=== PATIENT | male | born 1990 | race Caucasian/White ===

== ENCOUNTER 2016-12-01 18:35 | Emergency (ER) | payer BC ==
[~2016-12-01] VITALS: Ht 180.3 cm; Wt 87.3 kg
[2016-12-01 18:49] VITALS: TEMP 36.7; Ht 180.3 cm; Wt 87.3 kg
[2016-12-01] MEDS ORDERED: EFF/375 PO (19:10)
--- NOTE | 2016-12-01 19:42 | DIAGNOSTIC IMAGING REPORT ---
RIGHT ANKLE MIN 3 VIEWS ROUTINE CLINICAL HISTORY: R ankle pain Right trauma. Pain. COMPARISON: None. DISCUSSION: The bones and joint spaces appear intact. There is no evidence of fracture, dislocation or bony disease. There is no evidence for soft tissue swelling. IMPRESSION: Negative study. Electronically signed by: Jean Castelan M.D. 12/01/2016 7:41 PM Dictated Date/Time: 12/01/2016 7:41 PM
--- NOTE | 2016-12-01 19:43 | DIAGNOSTIC IMAGING REPORT ---
RIGHT FOOT MIN 3 VIEWS ROUTINE CLINICAL HISTORY: R foot pain Right trauma. Pain. COMPARISON: None. DISCUSSION: The bones and joint spaces appear intact. There is no evidence of fracture, dislocation or bony disease. There is no evidence for soft tissue swelling. IMPRESSION: Negative study. Electronically signed by: Jean Castelan M.D. 12/01/2016 7:42 PM Dictated Date/Time: 12/01/2016 7:41 PM
--- NOTE | 2016-12-01 19:44 | DIAGNOSTIC IMAGING REPORT ---
RIGHT TIBIA/FIBULA 2 VIEWS ROUTINE CLINICAL HISTORY: R lower leg pain Right COMPARISON: None. DISCUSSION: The bones and joint spaces appear intact. There is no evidence of fracture, dislocation or bony disease. There is no evidence for soft tissue swelling. IMPRESSION: Negative study. Electronically signed by: Jean Castelan M.D. 12/01/2016 7:43 PM Dictated Date/Time: 12/01/2016 7:42 PM
[2016-12-01 20:01] VITALS: BP 123/72; PULSE 88; O2SAT 99
--- NOTE | 2016-12-02 21:40 | EMERGENCY ROOM VISIT NOTE ---
ED Visit Note First contact with patient: 18:52 Chief Complaint: Right ankle pain. History of Present Illness: Mr. Christiansen is a 26-year-old white male who is brought into the ED via wheelchair accompanied by female friend complaining of right ankle pain over the lateral aspect. Patient reports 5 days ago he twisted his ankle when he stepped off an area from concrete and into grass. He reports he twisted the ankle and from his description this appears to be an inversion injury. He reports since that time he has been having increasing pain over the anterior and lateral aspect of the ankle. He describes his pain as a kind of throbbing but also sharp. He rates his discomfort 3/10. His pain worsens with all movement of the ankle, palpation of the lateral ligamentous structures and the anterior talus and ambulation. He has not identified any alleviating factors related to the pain. He reports he has taken a few doses of ibuprofen without relief of his discomfort. Associated with his pain he reports he has mild paresthesias throughout the top of the foot and into the toes and intermittently he has shooting pain from the lateral malleolus. Her through the fibula to just inferior to the knee. He denies hip pain, thigh pain, knee pain, lower leg pain, foot pain. He does report he has previous significant sprains but no surgeries to the ankle. Review of Systems: As noted above in history of present illness. Past Medical History: Patient denies. Current Medications: Effexor. Allergies to Medications: Penicillin. Social History: Patient is currently employed; he feels safe in his home environment; he admits to tobacco and alcohol use. Physical Examination: Vital Signs: Date Time Temp Pulse Resp B/P (MAP) Pulse Ox O2 Delivery O2 Flow Rate FiO2 12/01/16 20:01 88 18 123/72 99 12/01/16 18:49 36.7 90 16 129/73 97 Room Air GENERAL: 26-year-old male in mild distress due to pain, nontoxic-appearing, afebrile and hemodynamically stable. NEUROLOGICAL: Awake, alert and oriented to person, place and time. Answering questions appropriately and following commands. Normal gait. Good hand eye coordination. No focal motor sensory deficits. SKIN: Warm, dry and pink. RIGHT LOWER EXTREMITY: No gross bony deformity. No tenderness in the hip or knee. Moderate tenderness over the proximal fibula with no bony deformity or crepitus. There is also tenderness over the anterior, inferior posterior aspect of the lateral malleolus over the ligamentous structures and over the anterior calcaneus. I did not appreciate any bony deformity or crepitus. Over the lateral aspect of the ankle patient has moderate swelling and ecchymosis extending down into the inferior aspect of the ankle and into the lateral foot. I did not appreciate any ligamentous laxity but he did have moderate pain with testing. Decreased range of motion in dorsiflexion but not plantar flexion. He was able to flex and extend all toes without difficulty. Examination of the foot revealed tenderness over the distal aspect of the fifth metacarpal. Once again there was swelling and ecchymosis in this area. I did not appreciate any bony deformity or crepitus. Throughout the foot the skin was warm and pink and capillary refill is brisk. He was able to distinguish light sensations through all dermatomes of the foot. ED Course: Patient is assessed as noted above. Patient's medication list was reviewed. Right Lower Leg: Was read by myself and the radiologist showing no acute fractures or dislocations. No evidence of soft tissue swelling. Right Ankle X-Rays: Were read by myself and the radiologist and shows no acute fractures or dislocations. No joint effusion. Right Foot X-Rays: Were read by myself and the radiologist showing no acute fractures or dislocations. Patient was given ice for pain and comfort; he was offered pain medications and refused. Patient was placed in a gel splint and nonweightbearing crutches. Patient was educated about today's findings and instructed on his treatment plan ; he verbalizes understanding and agreement with this plan. Clinical Impression: Moderate right ankle sprain. Disposition: Patient discharged home in stable condition accompanied by his girlfriend; prior to departure he was reassessed and subjectively reported he was feeling the same and rated his discomfort 3/10. Plan: Alternate 600 mg of ibuprofen and 650 mg of acetaminophen every 3 hours as needed for pain. Use ice on areas of pain and swelling 5-6 times a day for 20-30 minutes. Keep your foot/ankle elevated while at rest. Use gel splint and nonweightbearing crutches for 3-6 days or until pain free. Follow-up with graphic specialist if no better in 7-10 days. Return to the ED for worsening/uncontrolled pain, uncontrolled swelling, foot weakness/numbness/tingling or any new/concerning symptoms.
== END 2016-12-01 20:01 | disposition home or self-care (01) ==
LOC: C.EDB 18:35 → C.EDD 20:01
DX: S93.401A Sprain of unspecified ligament of right ankle, initial encounter (principal); X50.1XXA Overexertion from prolonged static or awkward postures, initial encounter; Y92.89 Other specified places as the place of occurrence of the external cause; Z79.899 Other long term (current) drug therapy; Z72.0 Tobacco use

== ENCOUNTER 2017-11-10 11:41 | Emergency (ER) | payer BC, OTHER ==
[~2017-11-10] VITALS: Ht 180.3 cm; Wt 84.9 kg
[~2017-11-10 11:41] MED LIST: EFF/375 PO
[2017-11-10 11:47] VITALS: TEMP 36.8; Ht 180.3 cm; Wt 84.9 kg
[2017-11-10] MEDS ORDERED: MAGNESIUM SULFATE 1GM / D5W 100 ML IV STA (12:16)
[2017-11-10] MEDS ORDERED: SODIUM CHLORIDE 0.9% 500ML 500 ML IV STA (12:16)
[2017-11-10] MEDS ORDERED: ACETAMINOPHEN 500 MG TAB PO STA (12:16)
[2017-11-10] MEDS ORDERED: KETOROLAC TROMETHAMINE 30 MG/ML VIAL IV STA (12:16)
[2017-11-10] MEDS ORDERED: METOCLOPRAMIDE HCL INJ 5 MG/ML 2 ML VIAL IV. STA (12:16)
--- NOTE | 2017-11-10 12:21 | EMERGENCY ROOM VISIT NOTE ---
History Report prepared by Ira: Dotty Win Under the Supervision of: Dr. Willard Curran M.D. 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 Positive headache, lightheadedness. Negative sore throat, numbness, seeing flashing lights, weakness in extremities, recent infections, recent falls , or blood thinners. 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 This morning he woke up and had vertical double vision and his headache had moved to above his right eye. He describes his sensation as "holding his finger above his eye" and states his headache is constant. He currently takes Sertraline. 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 A total of ten systems were reviewed and were otherwise negative. Past Medical & Surgical Surgical Problems: (1) S/P tonsillectomy Family History Cancer Diabetes mellitus Heart disease Hypertension Social History Smoking Status: Never Smoker Alcohol Use: occasionally Housing Status: lives with significant other Occupation Status: employed Current/Historical Medications Scheduled Sertraline (Zoloft), 50 MG PO DAILY Allergies Coded Allergies: Penicillins (Verified Allergy, Intermediate, Hives, 11/10/17) Physical Exam Vital Signs Date Time Temp Pulse Resp B/P (MAP) Pulse Ox O2 Delivery O2 Flow Rate FiO2 11/10/17 14:28 79 18 116/65 99 11/10/17 13:40 78 18 113/62 98 Room Air 11/10/17 12:18 80 11/10/17 11:47 36.8 78 20 133/83 97 Room Air Physical Exam GENERAL: Awake, alert, well-appearing, NAD HENT: Normocephalic, atraumatic. EYES: Normal conjunctiva. Sclera non-icteric. PERRL. No anisocoria. EOMI painless. No proptosis. Visual acuity is 20/40 bilaterally w/ corrective lenses. Complains of vertical diplopia. No visual field deficits. No vision loss. NECK: Supple. No nuchal rigidity. FROM. RESPIRATORY: CTAB, no rhonchi, wheezing, crackles CARDIAC: RRR, no MRG ABDOMEN: Soft, NTND, BS+ MSK: No chest wall TTP, no LE edema NEURO: CN 2-12 intact, 5/5 upper and lower extremity strength, no dysmetria, no drift, good finger to nose, no sensory deficits. Finger count grossly normal. SKIN: No rash or jaundice noted. Medical Decision & Procedures ER Provider Diagnostic Interpretation: Radiology results as stated below per my review and radiologist interpretation: HEAD WITHOUT CONTRAST (CT) CLINICAL HISTORY: 27 years-old Male with occipital PEREZ, vertical diplopia. Acute headache TECHNIQUE: Multiple axial CT images of the head were obtained without contrast. A dose lowering technique was utilized adhering to the principles of ALARA. CT DOSE: 537.48 mGy.cm COMPARISON: CT head 04/05/2016, brain MRI 04/05/2016. FINDINGS: No acute intracranial hemorrhage, midline shift, intracranial mass, hydrocephalus, territorial ischemia or abnormal extra-axial collection. The calvarium is intact. The paranasal sinuses, mastoid air cells, and middle ear cavities are clear. IMPRESSION: No acute intracranial abnormality. The above report was generated using voice recognition software. It may contain grammatical, syntax or spelling errors. Electronically signed by: Jerzy Garcias M.D. 11/10/2017 1:11 PM Medications Administered Medications (Trade) Dose Ordered Sig/Juliana Route Start Time Stop Time Status Last Admin Dose Admin Metoclopramide HCl (Reglan Inj) 10 mg NOW STAT IV. 11/10/17 12:16 11/10/17 12:18 DC 11/10/17 12:30 10 MG Sodium Chloride 500 ml @ 999 mls/hr Q31M STAT IV 11/10/17 12:16 11/10/17 12:46 DC 11/10/17 12:30 999 MLS/HR Magnesium Sulfate 100 ml @ 100 mls/hr NOW STAT IV 11/10/17 12:16 11/10/17 13:15 DC 11/10/17 12:30 100 MLS/HR Ketorolac Tromethamine (Toradol Inj) 30 mg NOW STAT IV 11/10/17 12:16 11/10/17 12:18 DC 11/10/17 12:30 30 MG Acetaminophen (Tylenol Tab) 1,000 mg NOW STAT PO 11/10/17 12:16 11/10/17 12:18 DC 11/10/17 12:31 1,000 MG ECG Per My Interpretation Indication: other (dizziness) Rate (beats per minute): 76 Rhythm: normal sinus Findings: other (normal intervals, normal axis, no STS changes or TWI) ED Course 1205: The patient was evaluated in room C7. A complete history and physical exam was performed. 1400: I reevaluated the patient. His double vision has improved and he will follow up with his PCP. Discussed results and discharge instructions: He verbalized understanding and agreement. The patient is ready for discharge. 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 Positive headache, lightheadedness. Negative sore throat, numbness, weakness in extremities, seeing flashing lights recent infections, recent falls , or blood thinners. Nursing notes reviewed. Ancillary studies and prior records reviewed. Differential diagnosis: Etiologies such as migraine headache, meningitis, sinusitis, CO exposure, ICH, SAH, infection, tumor, headache, sinus thrombosis, arterial dissection, as well as others were entertained. Patient was seen and evaluated the bedside. Patient had been complaining of some diplopia and dizziness. He also did complain of an occipital headache. Patient denies any blood thinning medications or recent falls. Patient denies any flashing lights or floaters. The patient does not have any visual field deficits no anisocoria. The patient does wear contacts he currently is wearing an outdated prescription lenses and glasses. Patient did have a recent eye exam completed several weeks ago but did not have a dilated funduscopic exam. The patient denies any focal neuro deficits outside of his vertical diplopia. Patient does have 20 out of 40 bilaterally. The patient states that he did have an MRI which showed some sort of spot was not deemed to be anything other than migraines. Patient is a family history of MS in his aunt but not in his parents or grandparents. Patient did have a CT scan given the patient's symptoms as well as vertical diplopia. Patient was also treated for his headache. Upon reassessment patient was feeling improved and the patient no longer had any vertical diplopia. Again there is no evidence of any lazy eye or other abnormality. Given that he has no visual field deficits and no other vision difficulty this may be related to a complicated migraine. CT scan was negative acute does not show any evidence of masses or focal ischemia. The patient again is feeling improved. I did discuss risks of stroke as well as seizure and other possible causes of his double vision however these are probably less likely. Patient was told to follow-up with his PCP within the next several weeks in order to have a formal exam by an community recreation coordinator including a funduscopic exam. He may also benefit from seeing his PCP for further evaluation of migraine headache and possibly a neurology visit. Patient was told that he can drive that he should use his best judgment if he cannot see or has recurrent issues with his vision he should return here follow-up with his PCP. Patient was given strict follow-up, discharge, and return precautions. All questions were answered. Patient was deemed suitable for outpatient follow- up at this time. Patient agreed with the plan of care and was safely discharged home. Medication Reconcilliation Current Medication List: was personally reviewed by me Blood Pressure Screening Patient's blood pressure: Normal blood pressure Blood pressure disposition: Did not require urgent referral Impression Primary Impression: Complicated migraine Additional Impression: Double vision Scribe Attestation The scribe's documentation has been prepared under my direction and personally reviewed by me in its entirety. I confirm that the note above accurately reflects all work, treatment, procedures, and medical decision making performed by me. Departure Information Dispostion Home / Self-Care Referrals No Doctor, Assigned (PCP) Forms HOME CARE DOCUMENTATION FORM, IMPORTANT VISIT INFORMATION Patient Instructions ED Double Vision, ED Headache Migraine, My [facility] Additional Instructions Please return to the emergency department if you have worsening or recurrent symptoms not amenable to at-home treatment. Please call for a follow-up appointment with her primary care physician. Please take your medications as prescribed. If you have other concerns and/or complaints please feel free to also call your primary care physician's office or return the ED for further evaluation, management, and treatment. You may take 800 mg Ibuprofen every 6 hours as needed for pain/fever with food unless told by your physician not to take NSAIDs. You may take tylenol 1000 mg every 6 hours as needed for pain/fever unless told by your physician to not take it or have liver problems. You may take motrin and tylenol separately or at the same time. Take your medications as prescribed. You have been examined and treated today on an emergency basis only. This is not a substitute for, or an effort to provide, complete comprehensive medical care. It is impossible to recognize and treat all injuries or illnesses in a single emergency department visit. It is therefore important that you follow up closely with [facility], your PCP, and/or your specialist(s). Call as soon as possible for an appointment. Thank you for your time and consideration. I look forward to speaking with you again soon. Please don't hesitate to call us if you have any questions. Problem Qualifiers
[2017-11-10] MEDS ORDERED: SERT50TA PO (12:30)
--- NOTE | 2017-11-10 13:12 | DIAGNOSTIC IMAGING REPORT ---
HEAD WITHOUT CONTRAST (CT) CLINICAL HISTORY: 27 years-old Male with occipital PEREZ, vertical diplopia. Acute headache TECHNIQUE: Multiple axial CT images of the head were obtained without contrast. A dose lowering technique was utilized adhering to the principles of ALARA. CT DOSE: 537.48 mGy.cm COMPARISON: CT head 04/05/2016, brain MRI 04/05/2016. FINDINGS: No acute intracranial hemorrhage, midline shift, intracranial mass, hydrocephalus, territorial ischemia or abnormal extra-axial collection. The calvarium is intact. The paranasal sinuses, mastoid air cells, and middle ear cavities are clear. IMPRESSION: No acute intracranial abnormality. The above report was generated using voice recognition software. It may contain grammatical, syntax or spelling errors. Electronically signed by: Jerzy Garcias M.D. 11/10/2017 1:11 PM Dictated Date/Time: 11/10/2017 1:09 PM
[2017-11-10 14:28] VITALS: BP 116/65; PULSE 79; O2SAT 99
== END 2017-11-10 14:28 | disposition home or self-care (01) ==
LOC: C.EDB 11:42 → C.EDC 14:28
DX: G43.109 Migraine with aura, not intractable, without status migrainosus (principal); H53.2 Diplopia; Z79.899 Other long term (current) drug therapy; Z80.9 Family history of malignant neoplasm, unspecified; Z83.3 Family history of diabetes mellitus; Z82.0 Family history of epilepsy and other diseases of the nervous system; Z82.49 Family history of ischemic heart disease and other diseases of the circulatory system; Z88.0 Allergy status to penicillin